=== PATIENT | female | born 1990 | race Caucasian/White ===

== ENCOUNTER 2016-08-06 16:59 | Inpatient (IN) | payer BC ==
[2016-08-06] MEDS ORDERED: LACTATED RINGER'S 1000 ML INJ 1,000 ML IV PRN (18:09)
[2016-08-06] MEDS ORDERED: SODIUM CHLORIDE 0.9% FLUSH 10 ML FLUSH IV FLUSH PRN (18:15)
[2016-08-06] MEDS ORDERED: MINERAL OIL 10 ML VIAL TOPICAL PRN (18:15)
[2016-08-06] MEDS ORDERED: LIDOCAINE HCL 1% 50 ML VIAL INFIL PRN (18:15)
[2016-08-06] MEDS ORDERED: LIDOCAINE HCL 1% 50 ML VIAL I-DERMAL PRN (18:15)
[2016-08-06] MEDS ORDERED: OXYTOCIN 30 UNITS-500ML PREMIX 500 ML IV ONE (18:15)
[2016-08-06] MEDS ORDERED: SODIUM CHLORID 0.9% 500 ML INJ 500 ML IV PRN (18:15)
[2016-08-06] MEDS ORDERED: CITRIC ACID-SODIUM CITRATE LIQ 30 ML UDC PO SCH (18:15)
[2016-08-06] MEDS ORDERED: OXYTOCIN 30 UNITS-500ML PREMIX 500 ML IV SCH (18:15)
[2016-08-06] MEDS ORDERED: SODIUM CHLOR 0.9% 1000 ML INJ 1,000 ML IV PRN (18:29)
[2016-08-06 18:45] VITALS: RESP 19
[2016-08-06] MEDS ORDERED: PENICILLIN G POTASSIUM INJ 5,000,000 UNITS in SODIUM CHLORIDE 0.9% INJ 100 ML IV ONE (19:00)
[2016-08-06] MEDS ORDERED: DINOPROSTONE 10 MG VAG INSERT VAGINAL ONE (19:00)
[2016-08-06 19:08] LABS: AUTOMATED NEUTROPHIL # 9.8 TH/MM3 (1.8-7.7); BASOPHIL % 0.1 % (0.0-2.0); EOSINOPHIL % 0.3 % (0.0-4.0); HEMATOCRIT 37.2 % (35.0-46.0); HEMO FLAGS DIFF FINAL; LYMPH % 14.9 % (9.0-44.0); LYMPHOCYTE # 1.9 TH/MM3 (1.0-4.8); MEAN CELL VOLUME 90.1 FL (80.0-100.0); MEAN CORPUSCULAR HEMOGLOBIN 29.2 PG (27.0-34.0); MEAN CORPUSCULAR HGB CONC 32.4 % (32.0-36.0); NEUT % 75.7 % (16.0-70.0); PLATELET COUNT 214 TH/MM3 (150-450); RED BLOOD COUNT 4.13 MIL/MM3 (4.00-5.30); RED CELL DISTRIBUTION WIDTH 15.2 % (11.6-17.2); WHITE BLOOD COUNT 12.9 TH/MM3 (4.0-11.0)
[2016-08-06 19:09] LABS: BACTERIA, URINE RARE /hpf; BLOOD, URINE MOD (NEG); COMMENT (UR) CULT NOT INDICATED; CULTURE IF INDICATED CULT NOT INDICATED; GLUCOSE,URINE NEG (NEG); KETONE, URINE NEG (NEG); MUCUS URINE FEW /lpf (OCC); NITRITE,URINE NEG (NEG); PH, URINE 6.5 (5.0-8.5); SQUAMOUS EPITHELIAL CELL URINE 12 /hpf (0-5); URINE COLOR YELLOW (YELLW/STRAW)
[2016-08-06 19:39] VITALS: RESP 18; TEMP 98.7
[2016-08-06 19:51] VITALS: BP 128/84; PULSE 83
[2016-08-06] MEDS: LACTATED RINGER'S 1000 ML INJ 1,000 ML IV SCH (19:52)
[2016-08-06 20:28] VITALS: RESP 18
[2016-08-06] MEDS: SODIUM CHLORIDE 0.9% FLUSH 10 ML FLUSH IV FLUSH SCH (21:00)
[2016-08-06 21:30] VITALS: RESP 18
[2016-08-06 23:00] VITALS: RESP 18
[2016-08-06] MEDS ORDERED: PENICILLIN G POTASSIUM INJ 2,500,000 UNITS in SODIUM CHLORIDE 0.9% INJ 100 ML IV SCH (23:00)
[2016-08-07] VITALS (72 sets, daily range): BP systolic 98–148; BP diastolic 42–89; PULSE 63–96; RESP 16–20; TEMP 97.4–98.7
[2016-08-07] MEDS: LACTATED RINGER'S 1000 ML INJ 1,000 ML IV SCH ×3 (06:56→18:09)
[2016-08-07] MEDS ORDERED: PENICILLIN G POTASSIUM INJ 5,000,000 UNITS in SODIUM CHLORIDE 0.9% INJ 100 ML IV ONE (07:00)
[2016-08-07] MEDS ORDERED: OXYTOCIN 30 UNITS-500ML PREMIX 500 ML IV ONE ×2 (07:00→17:45)
[2016-08-07] MEDS: SODIUM CHLORIDE 0.9% FLUSH 10 ML FLUSH IV FLUSH SCH (09:00)
[2016-08-07] MEDS: PENICILLIN G POTASSIUM INJ 2,500,000 UNITS in SODIUM CHLORIDE 0.9% INJ 100 ML IV SCH ×2 (11:55→15:25)
[2016-08-07] MEDS ORDERED: fentaNYL 2MCG-BUPIV 0.125% INJ 100 ML ONE (12:33)
[2016-08-07] MEDS ORDERED: ePHEDrine/NS 25 MG/5 ML SYR ONE (12:52)
[2016-08-07] MEDS ORDERED: fentaNYL 2MCG-BUPIV 0.125% 100 ML EPIDURAL SCH (14:00)
[2016-08-07] MEDS ORDERED: DO NOT ADMINISTER ANTICOAGULANTS PRN (14:00)
[2016-08-07] MEDS ORDERED: NO SYSTEM NARCOTICS PRN (14:00)
[2016-08-07] MEDS ORDERED: ePHEDrine/NS 25 MG/5 ML SYR IV PRN (14:00)
[2016-08-07] MEDS ORDERED: MEASLES, MUMPS, RUBELLA VACCINE 0.5 ML VIAL SQ ONE (16:00)
[2016-08-07] MEDS ORDERED: DIPHTH/TETANUS/ACEL PERTUSSIS (BOOSTER) 0.5 ML VIAL/PFS IM ONE (16:00)
[2016-08-07] MEDS ORDERED: WITCH HAZEL 50%/GLYCERIN 12.5% 40 PAD JAR TOPICAL PRN (17:45)
[2016-08-07] MEDS ORDERED: OXYTOCIN 10 UNIT/ML AMP XX PRN (17:45)
[2016-08-07] MEDS ORDERED: ALUMINUM/MAGNESIUM/SIMETH 30 ML CUP PO PRN (17:45)
[2016-08-07] MEDS ORDERED: BENZOCAINE 20% TOPICAL SPRAY 60 ML CAN TOPICAL PRN (17:45)
[2016-08-07] MEDS ORDERED: SODIUM CHLORIDE 0.9% FLUSH 10 ML FLUSH IV FLUSH PRN (17:45)
[2016-08-07] MEDS ORDERED: oxyCODONE/ACETAMINOPHEN 5 MG/325 MG TAB PO PRN (17:45)
[2016-08-07] MEDS ORDERED: DOCUSATE SODIUM 50 MG/SENNA 8.6 MG TAB PO PRN (17:45)
[2016-08-07] MEDS ORDERED: ZOLPIDEM TARTRATE 5 MG TAB PO PRN (17:45)
[2016-08-07] MEDS ORDERED: ONDANSETRON ODT 4 MG TAB PO PRN (17:45)
[2016-08-07] MEDS ORDERED: ACETAMINOPHEN 325 MG TAB PO PRN (17:45)
--- NOTE | 2016-08-07 17:45 | PD.OB.DELI ---
Delivery Date: Aug 07, 2016 Anesthesia: Epidural Vaginal Delivery: Normal Presentation: Occiput anterior Nuchal Cord: None Delayed cord clamping (45 sec): Yes Infant: Female, Single One Minute : 8 Five Minute : 9 Weight: 7-15 Placenta: Spontaneous delivery, Intact, 3 vessel cord Repair: Chromic running Additional Information Repaired left labial laceration with 3-0 chromic in a running fashion Martha Merida MD Aug 07, 2016 17:45
[2016-08-07] MEDS ORDERED: SODIUM CHLORIDE 0.9% FLUSH 10 ML FLUSH IV FLUSH SCH (21:00)
[2016-08-08] MEDS: IBUPROFEN 600 MG TAB PO PRN ×3 (06:46→19:07)
[2016-08-08 07:41] VITALS: BP 130/88; PULSE 76; RESP 16; TEMP 98.2
--- NOTE | 2016-08-08 12:51 | HHI.OB ---
Subjective Post Day: 1 Remarks pain controlled, mod lochia, +void/flatus, emma po Objective Vitals/I&O Vital Signs Date Time Temp Pulse Resp B/P Pulse Ox O2 Delivery O2 Flow Rate FiO2 08/08/16 07:41 98.2 76 16 130/88 08/07/16 23:35 97.7 72 18 123/77 08/07/16 18:40 18 08/07/16 18:31 87 128/72 08/07/16 18:25 18 08/07/16 18:16 76 138/81 08/07/16 18:09 18 08/07/16 18:01 86 120/83 08/07/16 17:54 18 08/07/16 17:48 84 98/68 08/07/16 17:43 98.3 08/07/16 17:40 18 08/07/16 17:30 87 133/73 08/07/16 17:01 78 123/42 08/07/16 16:30 83 121/89 08/07/16 16:08 98.3 18 08/07/16 16:00 68 127/87 08/07/16 15:30 73 125/75 08/07/16 15:15 18 08/07/16 15:00 74 127/72 08/07/16 14:34 79 121/67 08/07/16 14:34 18 08/07/16 14:15 66 118/71 08/07/16 14:01 71 121/74 08/07/16 13:56 18 08/07/16 13:50 69 08/07/16 13:49 97.7 08/07/16 13:48 68 130/80 08/07/16 13:45 71 08/07/16 13:45 68 118/72 08/07/16 13:35 78 122/79 08/07/16 13:35 81 08/07/16 13:30 73 127/70 08/07/16 13:30 70 08/07/16 13:25 76 117/81 08/07/16 13:25 79 08/07/16 13:20 84 122/69 08/07/16 13:20 67 08/07/16 13:15 82 08/07/16 13:15 82 121/74 08/07/16 13:10 79 08/07/16 13:10 78 129/73 08/07/16 13:08 76 127/71 08/07/16 13:05 83 145/87 08/07/16 13:05 78 08/07/16 13:01 76 142/87 08/07/16 13:00 87 08/07/16 12:55 84 08/07/16 12:54 75 127/85 08/07/16 12:53 20 Objective Remarks GENERAL: Well-nourished, well-developed patient. CARDIOVASCULAR: Regular rate and rhythm without murmurs, gallops, or rubs. RESPIRATORY: Breath sounds equal bilaterally. No accessory muscle use. ABDOMEN/GI: Abdomen soft, non-tender. Fundus: Firm, non-tender at umbilicus. GENITOURINARY: Light to moderate bleeding. EXTREMITIES: No cyanosis or edema, non-tender, without signs of DVT. Medications and IVs Current Medications Medications (Trade) Dose Ordered Sig/Aditya Route Start Time Stop Time Status Last Admin (NS Flush) 2 ml BID IV FLUSH 08/06/16 21:00 Sodium Chloride 2 ml 2 ml UNSCH PRN IV FLUSH 08/06/16 18:15 Lactated Ringer's 1,000 ml @ 125 mls/hr Q8H IV 08/06/16 18:09 08/07/16 15:26 Lactated Ringer's 1,000 ml @ 3,000 mls/hr Q20M PRN IV 08/06/16 18:09 (NS 1000 ml Inj) 1,000 ml @ 100 mls/hr Q10H PRN IV 08/06/16 18:29 (fentaNYL INJ) 50 mcg Q1H PRN IV PUSH 08/06/16 18:15 (fentaNYL INJ) 100 mcg Q1H PRN IV PUSH 08/06/16 18:15 08/07/16 11:55 Mineral Oil 10 ml 10 ml UNSCH PRN TOPICAL 08/06/16 18:15 Oxytocin 500 ml @ 0 mls/hr TITRATE IV 08/06/16 18:15 08/07/16 06:58 (Pfizerpen-G Inj/ NS Inj) 100 ml @ 200 mls/hr Q4H IV 08/07/16 11:00 08/07/16 15:25 Miscellaneous Information No systemic narcotics to be given except... UNSCH PRN .XX 08/07/16 14:00 08/08/16 13:59 Miscellaneous Information DO NOT ADMINISTER ANY ANTICOAGUL... UNSCH PRN .XX 08/07/16 14:00 08/08/16 13:59 (fentaNYL 2MCG-BUPIV 0.125% INJ) 100 ml @ 0 mls/hr TITRATE EPIDURAL 08/07/16 14:00 (ePHEDrine/NS 25 MG/5 ML SYR) 10 mg UNSCH PRN IV 08/07/16 14:00 08/08/16 13:59 (NS Flush) 2 ml BID IV FLUSH 08/07/16 21:00 (NS Flush) 2 ml UNSCH PRN IV FLUSH 08/07/16 17:45 (Tylenol) 650 mg Q4H PRN PO 08/07/16 17:45 (Motrin) 600 mg Q6H PRN PO 08/07/16 17:45 08/08/16 06:46 (Percocet 5-325 Mg) 1 tab Q4H PRN PO 08/07/16 17:45 (Americaine 20% Top Spr) 1 spray Q4H PRN TOPICAL 08/07/16 17:45 (Tucks Pads) 1 applic QID PRN TOPICAL 08/07/16 17:45 (Nette-Colace) 2 tab Q12H PRN PO 08/07/16 17:45 (Ambien) 5 mg HS PRN PO 08/07/16 17:45 (Mag-Al Plus Susp Liq) 15 ml Q8H PRN PO 08/07/16 17:45 (Zofran Odt) 4 mg Q6H PRN PO 08/07/16 17:45 Assessment/Plan Problem List: (1) Spontaneous vaginal delivery Plan: routine pp care Martha Merida MD Aug 08, 2016 12:51
[2016-08-08] MEDS ORDERED: IBUP-232 PO (12:53)
--- NOTE | 2016-08-08 12:57 | HHI.DCPOC ---
Discharge Care Plan Diagnosis: (1) Spontaneous vaginal delivery Your Health Problems Are: Vaginal delivery Report Symptoms to Your Doctor -Temperature above 100.5 degrees -Redness, of incision or excessive or foul smelling drainage -Unusual pain or calf pain -Increased vaginal bleeding -Painful or difficulty urinating -Feelings of extreme sadness or anxiety after 2 weeks Goals to Promote Your Health * To prevent worsening of your condition and complications * To maintain your health at the optimal level Directions to Meet Your Goals Take your medications as prescribed Follow your dietary instruction Follow activity as directed Ensure plenty of rest for recovery Drink fluids for hydration Keep your appointments as scheduled Take your immunizations and boosters as scheduled If your symptoms worsen call your PCP, if no PCP go to Urgent Care Center or Emergency Room Smoking is Dangerous to Your Health. Avoid second hand smoke Call the 24-hour crisis hotline for domestic abuse at Martha Merida MD Aug 08, 2016 12:57
[2016-08-08 20:00] VITALS: BP 120/82; PULSE 74; RESP 18; TEMP 98.1
[2016-08-09 07:55] VITALS: BP 121/82; PULSE 81; RESP 16; TEMP 98.5
--- NOTE | 2016-08-09 10:53 | HHI.DS ---
Admission Date Aug 06, 2016 at 16:59 Discharge Date: Aug 09, 2016 Admitting Diagnosis Diagnosis: (1) Spontaneous vaginal delivery Delivery Date: Aug 07, 2016 Vaginal Delivery: Normal : Female, Single Hospital Course pt admitted with induction with cervidil. she had with out complications. by ppd 2 pt was voiding, passing gas with good pain control Pt Condition on Discharge: Stable Discharge Disposition: Discharge Home Discharge Instructions Diet Instructions: As Tolerated, No Restrictions Additional Diet Instructions: Drink at least 8 - 16 oz bottles of water a day Activities You Can Perform: Shower Only-No Bath, Sitz Bath Activities to Avoid: Lifting/Bending, Sexual Activity Additional Activity Instruc.: No driving until off pain medications Do not lift anything heavier than your baby in an infant carrier Martha Merida MD Aug 09, 2016 10:53
== END 2016-08-09 17:05 | disposition home or self-care (01) | DRG 775 ==
LOC: H2EB 16:59 → H1EA 08-07 19:57
PROVIDERS: ADMIT Obstetrics & Gynecology; ATTEND Obstetrics & Gynecology
PROC: 3E0P7GC Introduction of Other Therapeutic Substance into Female Reproductive, Via Natural or Artificial Opening (ICD-10-PCS; 2016-08-06)
PROC: 10E0XZZ Delivery of Products of Conception, External Approach (ICD-10-PCS; principal; 2016-08-07)
PROC: 0UQMXZZ Repair Vulva, External Approach (ICD-10-PCS; 2016-08-07)
PROC: 00HU33Z Insertion of Infusion Device into Spinal Canal, Percutaneous Approach (ICD-10-PCS; 2016-08-07)
PROC: 3E0R3CZ (ICD-10-PCS; 2016-08-07)
DX: O99.824 Streptococcus B carrier state complicating childbirth (principal); Z37.0 Single live birth; O70.0 First degree perineal laceration during delivery; Z3A.39 39 weeks gestation of pregnancy
CPT/HCPCS: 59025; 81001; 85025; 86900; 86901; J2540; J2590; J3010; J7120

== ENCOUNTER → 2016-10-25 | Day surgery (SDC) | payer BC ==
[~2016-10-25] VITALS: Ht 167.6 cm; Wt 99.5 kg
[~2016-10-25] MED LIST: *MEPERIDINE 25 MG INJ VIAL PERIprocedural Use ONLY ONE; *morphine SULFATE 8 MG/ML PERIprocedure ONLY ONE; ACETAMINOPHEN 1000 MG/100 ML 100 ML IV ONE; BUPIVACAINE/EPINEPHRINE 0.25% 50 ML VIAL ONE; CHLORHEXIDINE GLUCONATE 2 % 1 PACK (2 CLOTHS) TOPICAL PRN; DO NOT ADM ANY ANTICOAGULANT DRUGS PRN; FAMOTIDINE 20 MG/2 ML VIAL ONE; IBUP-232 PO; INSULIN HUMAN REGULAR 1,000 UNITS/10 ML VIAL SQ PRN; KETOROLAC TROMETHAMINE 60 MG/2 ML (IM) VIAL IM ONE; LACTATED RINGER'S 1000 ML IV PRN; METOPROLOL TARTRATE 25 MG TAB PO PRN; MIDAZOLAM HCL 2 MG/2 ML VIAL ONE; NEOSTIGMINE 3 MG/3 ML SYR IV ONE; ONDANSETRON HCL 4 MG/2 ML VIAL IV PUSH PRN; PHENYLEPH/NS 1000 MCG/10 ML SYR IV ONE; POVIDONE IODINE 5% (ANTISEPSIS KIT) 4 APPLICATIONS EACH NARE PRN; PROPOFOL 200 MG/20 ML AMP IV ONE; SODIUM CHLORID 0.9% 500 ML IV PRN; ePHEDrine/NS 25 MG/5 ML SYR IV ONE; oxyCODONE/ACETAMINOPHEN 10 MG/325 MG TAB PO PRN; oxyCODONE/ACETAMINOPHEN 5 MG/325 MG TAB PO PRN
--- NOTE | 2016-10-25 05:10 | MH ---
cc: MARTHA REHMAN DATE OF ADMISSION: 10/25/2016 DATE OF 1990 HISTORY OF PRESENT ILLNESS The patient is a 26-year-old 2, para 2 who presents with undesired fertility and desires operative intervention. PAST MEDICAL HISTORY Negative. PAST SURGICAL HISTORY Significant for breast surgery in 2014. OBSTETRICAL HISTORY She had two pregnancies; both were with vaginal deliveries. GYNECOLOGIC HISTORY No history of STDs. History of abnormal Pap smear only once; no other surgeries required. Her cycles are regular. SOCIAL HISTORY Negative for cigarettes, alcohol or street drugs. FAMILY HISTORY She has a maternal aunt with breast cancer. ALLERGIES None. PHYSICAL EXAMINATION VITAL SIGNS: Her weight is 217. Her height is 5'6", her blood pressure is 115/70. IN GENERAL: She is in no acute distress. HEART: Regular rate and rhythm. LUNGS: Clear to auscultation bilaterally. ABDOMEN: Soft, nontender, nondistended. LOWER EXTREMITIES: Nontender, non-edematous. IMPRESSION Undesired fertility. PLAN Laparoscopic tubal ligation. The risks, benefits and alternatives have been reviewed. The patient does desire to proceed. Martha Rehman MD TEG/SSB /10:36 PM /5:01 AM
[2016-10-25 10:56] LABS: AUTOMATED NEUTROPHIL # 6.1 TH/MM3 (1.8-7.7); BASOPHIL % 0.3 % (0.0-2.0); EOSINOPHIL # 0.1 TH/MM3 (0-0.4); EOSINOPHIL % 1.3 % (0.0-4.0); HEMATOCRIT 39.7 % (35.0-46.0); HEMO FLAGS DIFF FINAL; LYMPH % 23.2 % (9.0-44.0); MEAN CELL VOLUME 87.4 FL (80.0-100.0); MEAN CORPUSCULAR HEMOGLOBIN 29.2 PG (27.0-34.0); MEAN CORPUSCULAR HGB CONC 33.5 % (32.0-36.0); MONO % 5.9 % (0.0-8.0); NEUT % 69.3 % (16.0-70.0); PLATELET COUNT 224 TH/MM3 (150-450); RED BLOOD COUNT 4.55 MIL/MM3 (4.00-5.30); RED CELL DISTRIBUTION WIDTH 14.6 % (11.6-17.2); WHITE BLOOD COUNT 8.8 TH/MM3 (4.0-11.0)
[2016-10-25 15:35] VITALS: BP 122/68; PULSE 68; RESP 16; TEMP 98.2; O2SAT 97
--- NOTE | 2016-10-26 23:35 | MP ---
cc: MARTHA REHMAN DATE OF SURGERY 10/25/16 PREOPERATIVE DIAGNOSIS Undesired fertility. POSTOPERATIVE DIAGNOSIS Undesired fertility. PROCEDURE Laparoscopic tubal ligation. SURGEON Martha Rehman MD ANESTHESIA General plus local. ESTIMATED BLOOD LOSS Minimal. DRAINS None. COUNTS Correct x2. DISPOSITION Stable in the PACU. The patient is a 26-year-old 2, para 2 who presents for laparoscopic tubal ligation secondary to undesired fertility. PROCEDURE IN DETAIL After informed consent was obtained she was taken to the operating room, prepped and draped in normal sterile fashion for surgery. A speculum was inserted. The anterior lip of her cervix was grasped using a single-tooth tenaculum and a uterine manipulators inserted without difficulty. Gloves were then changed and the abdominal portion of the case is started. Fhe umbilical fold is injected with 0.25% Marcaine with epinephrine and a 5 mm skin incision was made in the umbilical fold. Next, the 5 mm trocar is inserted under direct visualization and pneumoperitoneum was obtained. The patient had grossly normal tubes and ovaries and uterus and also normal liver edge and gallbladder. A second 5 mm trocar is inserted after the area is injected with local and a 5 mm skin incision is made, trocars and surgeon under direct visualization. The XM Radio[employer] clamps were used to cauterize approximately a 3 cm segment of tube using the resistance meter. This was done initially on the patient's left side and then on the patient's right side. Once this was done the abdomen was deflated. The trocars were remove. The skin sites were closed using 4-0 Monocryl suture in a subcuticular fashion. All instruments were removed from the patient's vagina. She is then awakened and extubated and taken to recovery room in stable condition. Martha Rehman MD TEG/EO /5:59 PM /11:25 PM
== END | disposition home or self-care (01) ==
LOC: HSDC 10:03
PROVIDERS: ATTEND Obstetrics & Gynecology
DX: Z30.2 Encounter for sterilization (principal); Z01.818 Encounter for other preprocedural examination
CPT/HCPCS: 00851; 58670; 84703; 85025; 86077; 86850; 86870; 86900; 86901; 86902; 86920; 86922; J0131; J1885; J2175; J2250; J2270; J2370; J2710; J7120